=== PATIENT | male | born 1980 | race Caucasian/White ===

== ENCOUNTER → 2021-07-07 | Outpatient (CLI) | payer OTHER ==
--- NOTE | 2021-07-08 10:19 | RAD ---
EXAM: PA view right hand, oblique and lateral view right thumb DATE: 07/07/2021 2:50 PM INDICATION: Reason: PAIN, BUMP ON TOP OF RIGHT THUMB, NO KNOWN INJURY / Spl. Instructions: / History : . COMPARISON: No Prior FINDINGS/ IMPRESSION: 1. Soft tissue swelling about the right thumb without retained radiopaque foreign body. 2. No acute fracture or dislocation. Electronically signed by: Tad Arroyo MD (07/08/2021 10:17 AM) [id number]
== END ==
LOC: RAD 14:37
PROVIDERS: ATTEND Physician Assistant
DX: M79.89 Other specified soft tissue disorders (principal); M79.644 Pain in right finger(s)
CPT/HCPCS: 73140

== ENCOUNTER → 2021-10-23 | Outpatient (CLI) | payer OTHER ==
--- NOTE | 2021-10-23 17:23 | RAD ---
EXAM: 3 Views both Shoulder DATE: 10/23/2021 1:37 PM INDICATION: Reason: BILATERAL SHOULDER PAIN / Spl. Instructions: / History: COMPARISON: No Prior FINDINGS: There is no evidence for acute fracture or dislocation. AC joint is congruent. Small inferior glenohu meral joint osteophytes are seen bilaterally. Humeral head is not high riding. IMPRESSION: 1. No acute fracture or dislocation. 2. Mild bilateral shoulder joint osteoarthritis. Electronically signed by: aTd Arroyo MD (10/23/2021 5:21 PM) [id number]
== END ==
LOC: RAD 13:48
PROVIDERS: ATTEND Physician Assistant
DX: M19.011 Primary osteoarthritis, right shoulder (principal); M19.012 Primary osteoarthritis, left shoulder; M25.712 Osteophyte, left shoulder; M25.711 Osteophyte, right shoulder
CPT/HCPCS: 73030-50

== ENCOUNTER → 2022-04-09 | Outpatient (CLI) | payer OTHER ==
--- NOTE | 2022-04-09 11:51 | RAD ---
XR LUMBAR SPINE 2-3V History: Weightlifting injury. Back pain. Comparison: None. Technique: 3 views of the lumbar spine. Findings: There are 5 non-rib bearing lumbar vertebral segments. There is no evidence of fracture. No destructive osseous lesions. Alignment is normal. No significant facet disease. Moderate disc space narrowing at L5-S1 and L4-L5. Mild disc space narrowing at L3-L4. Sacroiliac joints are unremarkable. Soft tissues are unremarkable. IMPRESSION: 1. Lower lumbar degenerative disc disease. No acute osseous abnormality. Electronically signed by: Smooth Camacho MD (04/09/2022 11:49 AM) [id number]
== END ==
LOC: RAD 10:59
PROVIDERS: ATTEND Physician Assistant
DX: M51.36 Other intervertebral disc degeneration, lumbar region (principal); M48.07 Spinal stenosis, lumbosacral region; M54.42 Lumbago with sciatica, left side; Y93.B9 Activity, other involving muscle strengthening exercises
CPT/HCPCS: 72100